=== PATIENT | female | born 1960 | race Caucasian/White ===

== ENCOUNTER → 2017-08-09 | Day surgery (SDC) | payer BC, OTHER ==
[2017-07-26 11:15] VITALS: Ht 162.6 cm; Wt 100.0 kg
[~2017-08-09] VITALS: Ht 162.6 cm; Wt 100.0 kg
[~2017-08-09] MED LIST: ACET-1256 PO; CETI10TA84 PO; CHOL1000 PO; DOCU100C31 PO; GLUCTAB7 PO; GUAI1TAB69 PO; LIDOCAINE HCL 2% 2 ML VIAL (20MG/ML) ONE; MIDAZOLAM HCL 1 MG/ML 2ML VIAL ONE; MULT-506 PO; OMEG10007 PO; ONDANSETRON INJ 2 MG/ML 2 ML VIAL ONE; OYST500T47 PO; PROPOFOL IV EMULSION 10 MG/ML 20 ML VIAL IV ONE
--- NOTE | 2017-08-09 12:10 | Endo History and Physical ---
History & Physical Date of Service: Aug 09, 2017. Chief Complaint: FAMILY HISTORY OF COLON CA IN MOTHER AND AUNT Referring Physician: DR CARNES History of Present Illness 57 yo CF who presents for colonoscopy secondary to family history of colon cancer in Mother. Past Medical History Arthritis, Gastrointestinal Disorder Past Surgical History Hx Cardiac Surgery: No Hx Internal Defibrillator: No Hx Pacemaker: No Hx Abdominal Surgery: Yes (D&C/UTERINE POLYPECTOMY) Hx of Implantable Prosthesis: No Hx Post-Op Nausea and Vomiting: No Hx Cancer Surgery: No Hx Thoracic Surgery: No Hx Orthopedic: Yes (LEFT FANG) Hx Urinary Tract Surgery: No Family History Colon CA Social History Smoking Status: Never Smoker Hx Substance Use: No Hx Alcohol Use: No Allergies Coded Allergies: Prochlorperazine (Verified Allergy, Severe, RESTLESS LEGS AND ARMS , ) Amitriptyline (Unverified Allergy, Unknown, per PCP records , 08/09/17) Shrimp (Verified Allergy, Unknown, VOMITING, 08/09/17) Fungi (Verified Adverse Reaction, Unknown, MILDEW--SINUS ISSUES, 08/09/17) Sulfa Antibiotics (Verified Adverse Reaction, Unknown, "SULFA DRUGS": DIZZINESS, 08/09/17) Current Medications Reported Home Medications Medications Dose Route/Sig Max Daily Dose Days Date Category Tylenol (Acetaminophen) 500 Mg Tab 2 Tab PO Q6 PRN 07/26/17 Reported Paradox-3 (Fish Oil) 1 Ea Cap 1 Cap PO BID 07/26/17 Reported Calcium (Oyster Shell) 500 Mg Tab 1 Tab PO BID 07/26/17 Reported Vitamin D3 (Cholecalciferol) 1,000 Unit Tab 1 Tab PO BID 07/26/17 Reported Mucinex Maximum Strength (Guaifenesin) 1,200 Mg Tab 1 Tab PO BID PRN 09/23/15 Reported Docusate Sodium 100 Mg Cap 1 Cap PO QAM 09/23/15 Reported Multivitamin (Multivitamins) Tab 1 Tab PO DAILY AT NOON 09/23/15 Reported Glucosamine Chondroitin (Yundfpuakxi-Tmvaywfguyi-Grd C-) 1 Tab Tab 1 Tab PO TID 09/23/15 Reported Zyrtec (Cetirizine HCl) 10 Mg Tab 10 Mg PO HS 01/24/11 Reported Vital Signs Weight (Kilograms): 100 Height (Feet): 5 Height (Inches): 4 Date Time Temp Pulse Resp B/P (MAP) Pulse Ox O2 Delivery O2 Flow Rate FiO2 08/09/17 10:47 36.8 73 20 122/79 (93) 98 Room Air Physical Exam General Appearance: WD/WN, no apparent distress Respiratory/Chest: Auscultation: breath sounds normal Cardiovascular: Heart Auscultation: RRR Abdomen: Bowel Sounds: normal Inspection & Palpation: soft, non-distended, no tenderness, guarding & rebound Assessment and Plan Assessment: 57 yo CF who presents for colonoscopy secondary to family history of colon cancer in Mother. Plan: Proceed with colonoscopy.
--- NOTE | 2017-08-09 12:36 | Discharge Instructions ---
Endoscopy Patient Instructions Date / Procedure(s) Performed Aug 09, 2017. Colonoscopy Allergy Information Coded Allergies: Prochlorperazine (Verified Allergy, Severe, RESTLESS LEGS AND ARMS , ) Amitriptyline (Unverified Allergy, Unknown, per PCP records , 08/09/17) Shrimp (Verified Allergy, Unknown, VOMITING, 08/09/17) Fungi (Verified Adverse Reaction, Unknown, MILDEW--SINUS ISSUES, 08/09/17) Sulfa Antibiotics (Verified Adverse Reaction, Unknown, "SULFA DRUGS": DIZZINESS, 08/09/17) Discharge Date / Findings Aug 09, 2017. Internal hemorrhoids Medication Instructions OK to resume all medications today as prescribed Reported Home Medications Medications Dose Route/Sig Max Daily Dose Days Date Category Tylenol (Acetaminophen) 500 Mg Tab 2 Tab PO Q6 PRN 07/26/17 Reported B[place]wick-3 (Fish Oil) 1 Ea Cap 1 Cap PO BID 07/26/17 Reported Calcium (Oyster Shell) 500 Mg Tab 1 Tab PO BID 07/26/17 Reported Vitamin D3 (Cholecalciferol) 1,000 Unit Tab 1 Tab PO BID 07/26/17 Reported Mucinex Maximum Strength (Guaifenesin) 1,200 Mg Tab 1 Tab PO BID PRN 09/23/15 Reported Docusate Sodium 100 Mg Cap 1 Cap PO QAM 09/23/15 Reported Multivitamin (Multivitamins) Tab 1 Tab PO DAILY AT NOON 09/23/15 Reported Glucosamine Chondroitin (Bjkkpnqjrvt-Qvoovskrkhd-Mwg C-) 1 Tab Tab 1 Tab PO TID 09/23/15 Reported Zyrtec (Cetirizine HCl) 10 Mg Tab 10 Mg PO HS 01/24/11 Reported Provider Instructions Activity Restrictions - No exercising or heavy lifting for 24 hours. - Do not drink alcohol the day of the procedure. - Do not drive a car or operate machinery until the day after the procedure. - Do not make any important decisions or sign important papers in 24 hours after the procedure. Following Day: - Return to full activity which may include returning to work/school. Diet Start your diet with liquids and light foods (jello, soup, juice, toast). Then eat your usual diet if not nauseated. Treatment For Common After Affects For mild abdominal pain, bloating, or excessive gas: - Rest - Eat lightly - Lie on right side Follow-Up Information Follow-up with DR CARNES as scheduled Anesthesia Information What You Should Know You have had a procedure that required some medicine to reduce anxiety and discomfort. This treatment is called moderate sedation. After receiving the treatment, you may be sleepy, but you will be able to breathe on your own. The effects of the treatment may last for several hours. Follow these instructions along with Activity/Diet recommendations noted above: * Do NOT do anything where dizziness or clumsiness would be dangerous. * Rest quietly at home today, then you can be up and about tomorrow. * Have a responsible person stay with you the rest of today. * You may have had an I.V. today. If so, you may take the dressing off later today. Recommendations Call your doctor if: * Trouble breathing * Continuous vomiting for more than 24 hours * Temperature above 101 degrees * Severe abdominal pain or bloating * Pain not relieved by pain medicine ordered * There is increased drainage or redness from any incision * A large amount of rectal bleeding greater than 2-3 tablespoons. (If you had a polyp/s removed or have hemorrhoids, a small amount of blood - from the rectum is to be expected.) * You have any unanswered questions or concerns. IN THE EVENT OF A SERIOUS EMERGENCY, GO TO THE NEAREST EMERGENCY ROOM Your discharge instructions were prepared by provider Enzo Zelaya. Patient Instructions Signature Page Concepción Simental Patient (or Guardian) Signature/Date: I have read and understand the instructions given to me by my caregivers. Caregiver/RN/Doctor Signature/Date: The above-named patient and/or guardian has received patient instructions on this date. + Original Patient Signature Page (only) stays with chart. Please make copy for patient.
--- NOTE | 2017-08-09 12:41 | GI REPORT ---
Procedure Date: 08/09/2017 11:50 AM Procedure: Colonoscopy Indications: Family history of colon cancer in a first-degree relative Medicines: Monitored Anesthesia Care Complications: No immediate complications. Estimated Blood Loss: Estimated blood loss: none. Procedure: Pre-Anesthesia Assessment: - Prior to the procedure, a History and Physical was performed, and patient medications and allergies were reviewed. The patient's tolerance of previous anesthesia was also reviewed. The risks and benefits of the procedure and the sedation options and risks were discussed with the patient. All questions were answered, and informed consent was obtained. Prior Anticoagulants: The patient has taken no previous anticoagulant or antiplatelet agents. ASA Grade Assessment: II - A patient with mild systemic disease. After reviewing the risks and benefits, the patient was deemed in satisfactory condition to undergo the procedure. After I obtained informed consent, the scope was passed under direct vision. Throughout the procedure, the patient's blood pressure, pulse, and oxygen saturations were monitored continuously. The scope was introduced through the anus and advanced to the cecum, identified by appendiceal orifice and ileocecal valve. The colonoscopy was performed without difficulty. The patient tolerated the procedure well. The quality of the bowel preparation was good. The ileocecal valve, appendiceal orifice, and rectum were photographed. Findings: The perianal and digital rectal examinations were normal. Multiple small-mouthed diverticula were found in the sigmoid colon. Non-bleeding internal hemorrhoids were found during retroflexion. The hemorrhoids were small. Impression: - Diverticulosis in the sigmoid colon. - Non-bleeding internal hemorrhoids. - No specimens collected. Recommendation: - Resume previous diet. - Continue present medications. - Repeat colonoscopy in 5 years for surveillance. - Return to primary care physician as previously scheduled. Enzo Zelaya DO 08/09/2017 12:41:05 PM This report has been signed electronically. Note Initiated On: 08/09/2017 11:50 AM I attest to the content of the Intraoperative Record and orders documented therein, exceptions below
[2017-08-09 13:07] VITALS: BP 123/70; PULSE 65; O2SAT 100
--- NOTE | 2017-08-09 13:12 | Anesthesiology Progress Note ---
Anesthesia Post Op Note Date & Time Aug 09, 2017 at 13:12 Vital Signs Pain Intensity: 0 Vital Signs Past 12 Hours Date Time Temp Pulse Resp B/P (MAP) Pulse Ox O2 Delivery O2 Flow Rate FiO2 08/09/17 10:47 36.8 73 20 122/79 (93) 98 Room Air Notes Mental Status: alert / awake / arousable, participated in evaluation Pt Amnestic to Procedure: Yes Nausea / Vomiting: adequately controlled Pain: adequately controlled Airway Patency, RR, SpO2: stable & adequate BP & HR: stable & adequate Hydration State: stable & adequate Anesthetic Complications: no major complications apparent
== END | disposition home or self-care (01) ==
LOC: C.GI 10:07
PROVIDERS: ATTEND Internal Medicine
DX: Z12.11 Encounter for screening for malignant neoplasm of colon (principal); Z80.0 Family history of malignant neoplasm of digestive organs; K57.30 Diverticulosis of large intestine without perforation or abscess without bleeding; K64.8 Other hemorrhoids; M19.90 Unspecified osteoarthritis, unspecified site; Z96.642 Presence of left artificial hip joint

== ENCOUNTER → 2017-09-02 | Outpatient (CLI) | payer OTHER ==
[~2017-09-02] MED LIST changes: -LIDOCAINE HCL 2% 2 ML VIAL (20MG/ML) ONE; -MIDAZOLAM HCL 1 MG/ML 2ML VIAL ONE; -ONDANSETRON INJ 2 MG/ML 2 ML VIAL ONE; -PROPOFOL IV EMULSION 10 MG/ML 20 ML VIAL IV ONE
[2017-09-02 09:41] LABS: ALBUMIN 3.6 gm/dl (3.4-5.0); ALT/SGPT 29 U/L (12-78); BLOOD UREA NITROGEN 17 mg/dl (7-18); CALCIUM 9.2 mg/dl (8.5-10.1); CARBON DIOXIDE 30 mmol/L (21-32); CHOLESTEROL 258 mg/dl (0-200); CREATININE 0.67 mg/dl (0.60-1.20); GLUCOSE 87 mg/dl (70-99); POTASSIUM 3.8 mmol/L (3.5-5.1); SODIUM 139 mmol/L (136-145)
[2017-09-02 09:52] LABS: ALKALINE PHOSPHATASE 51 U/L (45-117); AST/SGOT 16 U/L (15-37); LDL CHOLESTEROL CALCULATED 139 mg/dl; TOTAL PROTEIN 7.5 gm/dl (6.4-8.2)
== END | disposition home or self-care (01) ==
LOC: C.LAB1850 08:15
PROVIDERS: ATTEND Internal Medicine
DX: E78.5 Hyperlipidemia, unspecified (principal); Z13.1 Encounter for screening for diabetes mellitus; R53.83 Other fatigue

== ENCOUNTER 2023-09-09 10:34 | Observation (INO) ==
[2023-09-09] MEDS: ONDANSETRON INJ 2 MG/ML 2 ML VIAL IV STA (11:01)
--- NOTE | 2023-09-09 11:20 | Emergency Department Note ---
Impression & Plan Biliary colic ADMIT ED Provider Note HPI: History obtained from patient The patient is a 63-year-old female who presents the emergency department with chief complaint of abdominal pain with nausea. Patient states she was just discharged from the hospital yesterday. Patient states that she was diagnosed with cholelithiasis, she was in the process of trying to schedule an outpatient elective cholecystectomy. Patient states that she developed pain on the right side of her abdomen extending across the upper portion of her abdomen last evening into today and therefore came back to the emergency department to be assessed. On my assessment here in the ED the patient is complaining of nausea but otherwise appears to be in no acute distress. Per chart review, MR DORA noted cholelithiasis with stones in the gallbladder neck without acute obstruction or acute cholecystitis while the patient was inpatient. ROS: - Per HPI Differential Diagnosis: Acute cholecystitis, biliary colic, choledocholithiasis, acute gastritis, acute pancreatitis, amongst other potential pathologies. *Outpatient medications and allergy history reviewed. PE: General: Alert HEENT: Normocephalic, trachea midline Eyes: Extraocular eye movement is intact, no scleral erythema Pulmonary: Clear to auscultation bilaterally, no wheezing Cardio: Regular rate and rhythm GI: Abdomen is soft to palpation, there is moderate tenderness to the right side of the abdomen with palpation without guarding or rigidity : No suprapubic tenderness MSK: No evidence of trauma or malformation of the extremities, no edema Skin: No evidence of rash Neuro: Alert, no focal deficits Psychiatric: Cooperative Medical Decision Making: IV was established and lab work obtained. Lab work shows no leukocytosis, hemoglobin is normal, platelet count is normal, CMP does not show any transaminitis, bilirubin is normal. I discussed the patient's presentation with the on-call midlevel provider for the general surgery service, Edith Algeria PA-C, and the patient was evaluated here in the emergency department. Patient was then taken to the operating room by general surgery for further management. Patient was transferred to the general surgery service in stable condition. Consultants/Discussions held with other healthcare providers: -Edith Alegria PA-C, General Surgery / Dr. Barrios General Surgery Disposition discussion held by myself with: -Patient Diagnosis: 1. Abdominal pain, acute 2. History of cholelithiasis 3. Nausea, acute Disposition: Admission to general surgery Francis Mcclain DO Emergency Medicine Past Med/Surg History Medical History Pneumonia Viral hepatitis, type A (01/29/11) Malaria Cough Stye Cellulitis Morbid obesity with BMI of 40.0-44.9, adult History of hepatitis A in 2010--no issues now Osteoarthritis Chronic back pain Rectal bleeding History of anal fissures Diverticular disease PVCs (premature ventricular contractions) follows with PCP Cardiac murmur mild; follows with PCP Allergic rhinitis Obstructive sleep apnea of adult no device Scoliosis Surgical History History of tooth extraction History of wisdom tooth extraction Status post left hip replacement H/O colonoscopy S/P dilatation and curettage Family History Mother Liver cancer Colorectal cancer Aunt Colorectal cancer Grandmother (Paternal) Pancreatic cancer Uncle Allergic rhinitis Uncle Dementia Other No family history of adverse response to anesthesia Denies family history of Ovarian cancer Prostate cancer Myocardial infarction Breast cancer Social History Smoking Status: Never smoker Second Hand Exposure: No; Do You Dip or Chew Tobacco: No; Hx Alcohol Use: No Hx Substance Use: No Preferred Language: Iranian Communication Ability: Effective Press Helper Required: No Beliefs That Will Affect Care: None marital status: Single Current Living Situation: Alone current occupational status: employed current occupation: [employer] for [employer] Feels Safe at Home: Yes Childhood Exposure to Second-Hand Smoke: Yes Dental Care, Regularly: No Physical Activity Frequency: Does not Exercise Seatbelt Use: always Sunscreen Use: Yes Assistive Devices: Cane Allergies Allergies Allergy/AdvReac Type Severity Reaction Status Date / Time house dust mite Allergy Intermediate Sneezing Verified 09/07/23 19:02 mold Allergy Intermediate Sneezing Verified 09/07/23 19:02 prochlorperazine AdvReac Intermediate RESTLESS Verified 08/07/23 14:51 LEGS AND ARMS shrimp AdvReac Intermediate VOMITING Verified 08/07/23 14:51 amitriptyline AdvReac Mild groggy Verified 08/07/23 14:51 Sulfa (Sulfonamide AdvReac Mild "SULFA Verified 08/07/23 14:51 Antibiotics) DRUGS": DIZZINESS Home Meds Home Medications Medication Instructions Recorded Confirmed calcium carbonate 500 mg calcium 500 mg PO BIDM 09/11/19 09/09/23 (1,250 mg) tablet cetirizine 10 mg tablet 10 mg PO HS 09/11/19 09/09/23 glucosamine sulfate-chondroitin 1 cap PO TID 09/11/19 09/09/23 sulfate A 500 mg-250 mg capsule multivitamin 1 tab PO QDL 09/11/19 09/09/23 elderberry fruit [Elderberry] 50 mg PO QPM 12/19/20 09/09/23 guaifenesin 600 mg tablet, 1,200 mg PO BID 12/28/21 09/09/23 extended release 12 hr (Mucinex) acetaminophen 500 mg tablet 500 mg PO ONCE PRN Pain 07/22/23 09/09/23 (Tylenol Extra Strength) omega-3 fatty acids 1,000 mg PO BID 07/22/23 09/09/23 Previous Rx's Medication Instructions Recorded montelukast 10 mg tablet 10 mg PO QPM #90 tabs 03/18/23 meloxicam 7.5 mg tablet 15 mg (2 x 7.5 mg) PO DAILY PRN 08/07/23 joint pain #60 tabs Results & Data (ED) Vital Signs Vital Signs - 24 hr 09/09/23 10:48 09/09/23 13:04 Temperature 36.2 C L 37.2 C Temperature Source Temporal Artery Scan Oral Pulse Rate 76 Pulse Rate [Right Finger] 84 Pulse Rhythm [Right Finger] Regular Pulse Strength [Right Finger] Normal Respiratory Rate 20 20 Respiratory Effort / Characteristics Non-Labored Non-Labored Spontaneous Respiratory Depth Normal Normal Respiratory Pattern Regular Blood Pressure 189/101 H Blood Pressure [Right Arm] 184/94 H Blood Pressure Mean 130 Blood Pressure Mean [Right Arm] 124 Blood Pressure Position [Right Arm] Semi-fowlers Pulse Oximetry 96 99 Oxygen Delivery Method Room Air Room Air Sepsis Recent Fever Within 48 Hours No Sepsis New/Unexplained Change in Mental Status N/A Sepsis Action Taken by Nursing No Action Required Laboratory Data 09/09/23 11:00 09/09/23 11:00 Lab Results 09/09/23 09/09/23 Range/Units 11:00 12:40 WBC 6.40 (4.8-10.8) K/ul RBC 4.61 (4.20-5.40) M/uL Hgb 13.3 (12.0-16.0) g/dl Hct 41.0 (37.0-47.0) % MCV 88.9 (80.0-100.0) fL MCH 28.9 (25.0-34.0) pg MCHC 32.4 (32.0-36.0) g/dL RDW Std Deviation 43.5 (36.4-46.3) fL RDW Coeff of Tucker 13.3 (11.5-14.5) % Plt Count 294 (130-400) K/uL MPV 10.1 (9.4-12.4) fL Immature Gran % (Auto) 0.2 % Neut % (Auto) 76.1 % Lymph % (Auto) 16.3 % Walsh % (Auto) 6.3 % Eos % (Auto) 0.6 % Baso % (Auto) 0.5 % Neut # (Auto) 4.88 (1.40-6.50) K/uL Lymph # (Auto) 1.04 L (1.20-3.40) K/uL Walsh # (Auto) 0.40 (0.11-0.59) K/uL Eos # (Auto) 0.04 (0.00-0.50) K/uL Baso # (Auto) 0.03 (0.00-0.20) K/uL Immature Gran # (Auto) 0.01 (0.01-0.20) K/uL Sodium 138 (136-145) mmol/L Potassium 3.9 (3.5-5.1) mmol/L Chloride 102 (98-107) mmol/L Carbon Dioxide 28 (21-32) mmol/L Anion Gap 8 (3-11) BUN 11 (6-23) mg/dl Creatinine 0.69 (0.6-1.2) mg/dl Est Cr Clr Drug Dosing 103.5 ml/min Est GFR ( Amer) 106.6 ml/min Est GFR (Non-Af Amer) 92.0 ml/min BUN/Creatinine Ratio 15.9 (10-20) Glucose 117 H (70-99(Fasting)) mg/dl Calcium 9.3 (8.6-10.3) mg/dl Total Bilirubin 0.5 (0.2-1.0) mg/dl AST 22 (13-39) U/L ALT 28 (7-52) U/L Alkaline Phosphatase 53 (34-104) U/L Total Protein 7.4 (6.0-8.3) gm/dl Albumin 4.5 (3.4-5.0) gm/dl Globulin 2.9 (2.5-4.0) gm/dl Albumin/Globulin Ratio 1.6 (0.9-2) Lipase 31 (11-82) U/L Urine Color Yellow Urine Appearance Clear (Clear) Urine pH 6.5 (4.5-7.5) Ur Specific Crystal 1.018 (1.000-1.030) Urine Protein Negative (Negative) Urine Glucose (UA) Negative (Negative) Urine Ketones 1+ H (Negative) Urine Blood Negative (Negative) Urine Nitrite Negative (Negative) Urine Bilirubin Negative (Negative) Urine Urobilinogen Negative (Negative) Ur Leukocyte Esterase Negative (Negative) Administered Medications Lactated Ringer's (Lr) 1,000 mls @ 15 mls/hr IV .Q24H CAMILA Stop: 10/09/23 13:14 Last Infusion: 09/09/23 13:30 Dose: Infused Documented By: Admin: 09/09/23 13:13 Dose: 15 mls/hr Documented By: JAG Discontinued Medications Cefazolin Sodium (Ancef 2000mg) 2,000 mg in 15 mls @ 3.75 mls/min IV PREOP ONE; Protocol Stop: 09/09/23 12:55 Last Admin: 09/09/23 13:34 Dose: 3.75 mls/min Documented By: ANNA MARIE Cefazolin Sodium (Ancef 1000mg) 1,000 mg in 7.5 mls @ 2.5 mls/min IV ONCE ONE Stop: 09/09/23 13:59 Last Admin: 09/09/23 13:34 Dose: 2.5 mls/min Documented By: ANNA MARIE Ondansetron HCl (Ondansetron Inj 2 Mg/Ml 2 Ml Vial) 4 mg IV NOW STA Stop: 09/09/23 10:54 Last Admin: 09/09/23 11:01 Dose: 4 mg Documented By: HUGO Discharge Plan Visit Data Chief Complaint: Abdominal Pain Stated Complaint: GALLBLADDER CAUSING PAIN AND NAUSEA ED Provider: Francis Mcclain Discharge Problem: Biliary colic
[2023-09-09 11:29] LABS: Basophils # (auto) 0.03 K/uL (0.00-0.20); Basophils % (auto) 0.5 %; Eosinophils # (auto) 0.04 K/uL (0.00-0.50); Eosinophils % (auto) 0.6 %; Hemoglobin 13.3 g/dl (12.0-16.0); Immature Granulocytes # (auto) 0.01 K/uL (0.01-0.20); Immature Granulocytes % (auto) 0.2 %; Lymphocytes # (auto) 1.04 K/uL (1.20-3.40); Lymphocytes % (auto) 16.3 %; Mean Corpuscular Hemoglobin 28.9 pg (25.0-34.0); Mean Corpuscular Hgb Conc 32.4 g/dL (32.0-36.0); Mean Corpuscular Volume 88.9 fL (80.0-100.0); Mean Platelet Volume 10.1 fL (9.4-12.4); Monocytes % (auto) 6.3 %; Neutrophils # (auto) 4.88 K/uL (1.40-6.50); Neutrophils % (auto) 76.1 %; Platelet Count 294 K/uL (130-400); RDW Coefficient of Variation 13.3 % (11.5-14.5); RDW Standard Deviation 43.5 fL (36.4-46.3); Red Blood Count 4.61 M/uL (4.20-5.40)
[2023-09-09 11:37] LABS: Albumin Globulin Ratio 1.6 (0.9-2); Albumin Level 4.5 gm/dl (3.4-5.0); BUN Creatinine Ratio 15.9 (10-20); Bilirubin,Total 0.5 mg/dl (0.2-1.0); Calcium 9.3 mg/dl (8.6-10.3); Creatinine Clr Calc Pharmacy 103.5 ml/min; Est GFR (African American) 106.6 ml/min; Globulin 2.9 gm/dl (2.5-4.0); Potassium 3.9 mmol/L (3.5-5.1); Total Protein 7.4 gm/dl (6.0-8.3)
--- NOTE | 2023-09-09 12:32 | History & Physical Report ---
Date of Service September 09, 2023 Assessment & Plan (1) Cholelithiasis: (2) Right upper quadrant abdominal pain: (3) Morbid obesity: Plan 63 year-old female just recently admitted to hospital over weekend for upper abdominal pain with nausea found to have cholelithiasis without cholecystitis on imaging. Discharged yesterday and then presented back to emergency department this morning due to persistent pain since this morning with nausea and bilious vomiting. No fever or chills. Unremarkable labs. Exam with RUQ tenderness on examination. Plan: Will plan to take patient to operating room for laparoscopic cholecystectomy today. Discussed procedure, risks, and expected recovery with patient. Informed consent obtained. Keep npo Pain management as needed Will give 2 gm ancef preop Discussed with DR. Barrios who agrees with above and will evaluate patient preoperatively. History of Present Illness Chief Complaint: abdominal pain and nausea Primary Care Provider: Madhav Khalil MD [place] is a 63 year-old female with history of hepatitis A, malaria, diverticulosis, scoliosis, allergic rhinitis, FADI who was just admitted to hospital over the weekend dur to intermittent epigastric and RUQ abdominal pain with nausea. She was just discharged yesterday from hospital as her symptoms resolved. She had ultrasound which showed cholelithiasis with large stones in neck of gallbladder, MRCP showing no cholecystitis or choledocholithiasis. Labs unremarkable for biliary obstruction. She states she started having pain last evening again after dinner which was intermittent but that pain worsened this morning and became persistent with nausea and clear to bilious vomiting. NO fever or chills. No prior history of abdominal surgeries. No history of chest pain, shortness of breath at rest, or palpitations. Allergies Allergy/AdvReac Type Severity Reaction Status Date / Time house dust mite Allergy Intermediate Sneezing Verified 09/07/23 19:02 mold Allergy Intermediate Sneezing Verified 09/07/23 19:02 prochlorperazine AdvReac Intermediate RESTLESS Verified 08/07/23 14:51 LEGS AND ARMS shrimp AdvReac Intermediate VOMITING Verified 08/07/23 14:51 amitriptyline AdvReac Mild groggy Verified 08/07/23 14:51 Sulfa (Sulfonamide AdvReac Mild "SULFA Verified 08/07/23 14:51 Antibiotics) DRUGS": DIZZINESS Home Medications Medication Instructions Recorded Confirmed Type calcium carbonate 500 mg calcium 500 mg PO BIDM 09/11/19 09/09/23 History (1,250 mg) tablet cetirizine 10 mg tablet 10 mg PO HS 09/11/19 09/09/23 History glucosamine sulfate-chondroitin 1 cap PO TID 09/11/19 09/09/23 History sulfate A 500 mg-250 mg capsule multivitamin 1 tab PO QDL 09/11/19 09/09/23 History elderberry fruit [Elderberry] 50 mg PO QPM 12/19/20 09/09/23 History guaifenesin 600 mg tablet, 1,200 mg PO BID 12/28/21 09/09/23 History extended release 12 hr (Mucinex) montelukast 10 mg tablet 10 mg PO QPM #90 tabs 03/18/23 09/09/23 Rx acetaminophen 500 mg tablet 500 mg PO ONCE PRN Pain 07/22/23 09/09/23 History (Tylenol Extra Strength) omega-3 fatty acids 1,000 mg PO BID 07/22/23 09/09/23 History meloxicam 7.5 mg tablet 15 mg (2 x 7.5 mg) PO DAILY PRN 08/07/23 09/09/23 Rx joint pain #60 tabs Past Med/Surg History Medical History Pneumonia Viral hepatitis, type A (01/29/11) Malaria Cough Stye Cellulitis Morbid obesity with BMI of 40.0-44.9, adult History of hepatitis A in 2010--no issues now Osteoarthritis Chronic back pain Rectal bleeding History of anal fissures Diverticular disease PVCs (premature ventricular contractions) follows with PCP Cardiac murmur mild; follows with PCP Allergic rhinitis Obstructive sleep apnea of adult no device Scoliosis Surgical History History of tooth extraction History of wisdom tooth extraction Status post left hip replacement H/O colonoscopy S/P dilatation and curettage Family History Mother Liver cancer Colorectal cancer Aunt Colorectal cancer Grandmother (Paternal) Pancreatic cancer Uncle Allergic rhinitis Uncle Dementia Other No family history of adverse response to anesthesia Denies family history of Ovarian cancer Prostate cancer Myocardial infarction Breast cancer Social History Smoking Status: Never smoker Second Hand Exposure: No; Do You Dip or Chew Tobacco: No; Hx Alcohol Use: No Hx Substance Use: No Preferred Language: Slovak Communication Ability: Effective Drill Operator Pneumatic Required: No Beliefs That Will Affect Care: None marital status: Single Current Living Situation: Alone current occupational status: employed current occupation: [employer] Feels Safe at Home: Yes Childhood Exposure to Second-Hand Smoke: Yes Dental Care, Regularly: No Physical Activity Frequency: Does not Exercise Seatbelt Use: always Sunscreen Use: Yes Assistive Devices: Cane Review of Systems Review of Systems: All systems reviewed & are unremarkable except as noted in HPI & below Physical Exam Constitutional: WD/WN, vitals as above + morbidly obese and cooperative; no acute distress and not ill appearing Neck: normal visual inspection and trachea midline Respiratory: normal respiratory effort, lungs clear to auscultation Cardiovascular: Rate/Rhythm: regular rate and regular rhythm Heart Sounds: normal S1 and normal S2 Gastrointestinal (Abdomen): Inspection/Auscultation: abdomen normal to inspe ction; abdomen not distended Percussion/Palpation: + abdomen tender (RUQ) and abdomen soft; no guarding, abdomen not rigid and abdomen not firm Skin: no rashes, warm and dry no jaundice Psychiatric: A+Ox3, euthymic affect Results & Data Results & Data Vital Signs (Past 12 Hours) Vital Signs Temp Pulse Resp BP Pulse Ox O2 Del Method 09/09/23 10:48 36.2 C L 76 20 189/101 H 96 Room Air Laboratory Results 09/09/23 Range/Units 11:00 WBC 6.40 (4.8-10.8) K/ul RBC 4.61 (4.20-5.40) M/uL Hgb 13.3 (12.0-16.0) g/dl Hct 41.0 (37.0-47.0) % MCV 88.9 (80.0-100.0) fL MCH 28.9 (25.0-34.0) pg MCHC 32.4 (32.0-36.0) g/dL RDW Std Deviation 43.5 (36.4-46.3) fL RDW Coeff of Tucker 13.3 (11.5-14.5) % Plt Count 294 (130-400) K/uL MPV 10.1 (9.4-12.4) fL Immature Gran % (Auto) 0.2 % Neut % (Auto) 76.1 % Lymph % (Auto) 16.3 % [place] % (Auto) 6.3 % Eos % (Auto) 0.6 % Baso % (Auto) 0.5 % Neut # (Auto) 4.88 (1.40-6.50) K/uL Lymph # (Auto) 1.04 L (1.20-3.40) K/uL [place] # (Auto) 0.40 (0.11-0.59) K/uL Eos # (Auto) 0.04 (0.00-0.50) K/uL Baso # (Auto) 0.03 (0.00-0.20) K/uL Immature Gran # (Auto) 0.01 (0.01-0.20) K/uL Sodium 138 (136-145) mmol/L Potassium 3.9 (3.5-5.1) mmol/L Chloride 102 (98-107) mmol/L Carbon Dioxide 28 (21-32) mmol/L Anion Gap 8 (3-11) BUN 11 (6-23) mg/dl Creatinine 0.69 (0.6-1.2) mg/dl Est Cr Clr Drug Dosing 103.5 ml/min Est GFR ( Amer) 106.6 ml/min Est GFR (Non-Af Amer) 92.0 ml/min BUN/Creatinine Ratio 15.9 (10-20) Glucose 117 H (70-99(Fasting)) mg/dl Calcium 9.3 (8.6-10.3) mg/dl Total Bilirubin 0.5 (0.2-1.0) mg/dl AST 22 (13-39) U/L ALT 28 (7-52) U/L Alkaline Phosphatase 53 (34-104) U/L Total Protein 7.4 (6.0-8.3) gm/dl Albumin 4.5 (3.4-5.0) gm/dl Globulin 2.9 (2.5-4.0) gm/dl Albumin/Globulin Ratio 1.6 (0.9-2) Lipase 31 (11-82) U/L Diagnostic Findings ABDOMINAL ULTRASOUND, RIGHT UPPER QUADRANT HISTORY: Acute right upper quadrant abdominal pain upper abd pain. COMPARISON: 04/12/2016 FINDINGS: Limited exam secondary to patient body habitus. Pancreas: The pancreas is mostly obscured by bowel gas. Liver: 22 cm in length with increased echogenicity. No marginal nodularity or focal mass identified. Gallbladder: Stone filled gallbladder. The wall measures upper limits of normal at 3 mm. No pericholecystic fluid identified. Patient reports right upper quadrant abdominal tenderness, however the sonographic Klein's sign was negative. CBD: 0.9 mm. Equivocal choledocholithiasis with small dependent increased echogenicity within the common bile duct on image 33. Right kidney: No hydronephrosis. IMPRESSION: 1. Limited exam secondary to patient body habitus. 2. Cholelithiasis with mild nonspecific gallbladder wall thickening. No pericholecystic fluid was identified and the sonographic Klein sign was reported as negative. Findings are equivocal for acute cholecystitis. Correlation could be made with hepatobiliary scan. 3. Mild common bile duct dilation with possible choledocholithiasis. Correlate with serum bilirubin. 4. Hepatic steatosis. MR MRCP HISTORY: 63 years-old Female Mild CBD dilation w/ possible choledocholithiasis acute upper abdominal pain COMPARISON: Ultrasound of same day TECHNIQUE: MRCP without IV contrast FINDINGS: Hepatomegaly with hepatic steatosis. No acute lower thoracic abnormality. No hydronephrosis, lymphadenopathy or bowel obstruction. Distended gallbladder with numerous large stones noted within the gallbladder neck. No definite gallbladder wall thickening or pericholecystic fluid identified. Common bile duct is upper limits of normal at 7 mm. No choledocholithiasis. No pancreatic ductal dilation. There are a few tiny T2 hyperintense foci within the pancreas measuring up to 4 mm suggestive of probable sidebranch IPMN's. IMPRESSION: 1. Distended gallbladder with cholelithiasis redemonstrated. 2. The common bile duct measures within the upper limits of normal. No ch oledocholithiasis is identified. Code Status & VTE Plan VTE Prophylaxis Plan VTE Prophylaxis will be ordered: Yes Supervising Physician Co-Signing Physician Notes I have seen and examined the patient directly and have reviewed the note. I agree with the assessment and plan. In brief, she has recurrent severe symptomatic cholelithiasis bordering on acute cholecystitis. Abdomen is soft but tender to palpation in the right upper quadrant. Previous ultrasound showed borderline acute cholecystitis. Labs are normal today. I discussed with her the risk benefits of laparoscopic cholecystectomy. She is agreeable to proceed and signed consent. We will take her to the operating room at the earliest convenience.
[2023-09-09] MEDS ORDERED: HYDROmorphone INJ 1 MG/ML SYRINGE IV PRN (13:00)
[2023-09-09] MEDS ORDERED: fentaNYL citrate PF 100 MCG/2 ML VIAL IV PRN (13:00)
[2023-09-09] MEDS ORDERED: ePHEDrine sulfate 50 MG/ML AMP IV PRN (13:00)
[2023-09-09] MEDS ORDERED: ATROPINE SULFATE 0.1 MG/ML 10ML SYR IV PRN (13:00)
[2023-09-09 13:01] LABS: Appearance Urine Clear (Clear); Bilirubin Urine Negative (Negative); Blood Urine Negative (Negative); Color Urine Yellow; Glucose Urine UA Negative (Negative); Ketones Urine 1+ (Negative); Leukocyte Esterase Urine Negative (Negative); Nitrite Urine Negative (Negative); Protein Urine Negative (Negative); Specific Gravity Urine 1.018 (1.000-1.030); Urobilinogen Urine Negative (Negative); pH Urine 6.5 (4.5-7.5)
[2023-09-09] MEDS ORDERED: LIDOCAINE 2% 2 ML VIAL/AMP(20MG/ML) INFIL ONE (13:02)
[2023-09-09] MEDS ORDERED: MIDAZOLAM HCL 1 MG/ML 2ML VIAL ONE (13:02)
[2023-09-09] MEDS ORDERED: fentaNYL citrate PF 100 MCG/2 ML VIAL ONE ×2 (13:02→13:59)
[2023-09-09] MEDS ORDERED: DEXAMETHASONE SOD INJ 4 MG/ML VIAL ONE (13:02)
[2023-09-09] MEDS ORDERED: ONDANSETRON INJ 2 MG/ML 2 ML VIAL ONE (13:02)
[2023-09-09] MEDS ORDERED: PROPOFOL IV EMULSION 10 MG/ML 20 ML VIAL IV ONE (13:02)
[2023-09-09] MEDS ORDERED: ROCURONIUM BROMIDE 10 MG/ML 5 ML VIAL IV ONE (13:02)
--- NOTE | 2023-09-09 13:06 | Anesthesiology Consultation ---
Date of Service September 09, 2023 Assessment & Plan (1) Encounter for pre-operative examination: Chart Review Chart Review: Acceptable Risk for Surgery and Patient NOT seen in Pre Admission Testing Consults Requested none History Surgery Operation Date: 09/09/23 08:20 Proposed Procedures p Laparoscopic Cholecystectomy - Nathan Barrios MD Height/Weight Height: 5 ft 3 in Weight: 120.4 kg Allergies Allergy/AdvReac Type Severity Reaction Status Date / Time house dust mite Allergy Intermediate Sneezing Verified 09/07/23 19:02 mold Allergy Intermediate Sneezing Verified 09/07/23 19:02 prochlorperazine AdvReac Intermediate RESTLESS Verified 08/07/23 14:51 LEGS AND ARMS shrimp AdvReac Intermediate VOMITING Verified 08/07/23 14:51 amitriptyline AdvReac Mild groggy Verified 08/07/23 14:51 Sulfa (Sulfonamide AdvReac Mild "SULFA Verified 08/07/23 14:51 Antibiotics) DRUGS": DIZZINESS Medications Home Medications Medication Instructions Recorded Confirmed Last Taken calcium carbonate 500 mg calcium 500 mg PO BIDM 09/11/19 09/09/23 07/24/21 (1,250 mg) tablet cetirizine 10 mg tablet 10 mg PO HS 09/11/19 09/09/23 07/24/21 glucosamine sulfate-chondroitin 1 cap PO TID 09/11/19 09/09/23 07/24/21 sulfate A 500 mg-250 mg capsule multivitamin 1 tab PO QDL 09/11/19 09/09/23 07/24/21 elderberry fruit [Elderberry] 50 mg PO QPM 12/19/20 09/09/23 07/23/21 guaifenesin 600 mg tablet, 1,200 mg PO BID 12/28/21 09/09/23 Unknown extended release 12 hr (Mucinex) montelukast 10 mg tablet 10 mg PO QPM #90 tabs 03/18/23 09/09/23 Unknown acetaminophen 500 mg tablet 500 mg PO ONCE PRN Pain 07/22/23 09/09/23 Unknown (Tylenol Extra Strength) omega-3 fatty acids 1,000 mg PO BID 07/22/23 09/09/23 Unknown meloxicam 7.5 mg tablet 15 mg (2 x 7.5 mg) PO DAILY PRN 08/07/23 09/09/23 Unknown joint pain #60 tabs Active Medications Generic Name Dose Route Start Last Admin Trade Name Tom PRN Reason Stop Dose Admin Lactated Ringer's 1,000 mls @ 15 mls/hr 09/09/23 13:15 09/09/23 13:13 Lr IV 10/09/23 13:14 15 mls/hr .Q24H CAMILA Administration Past Medical History Medical History Pneumonia Viral hepatitis, type A (01/29/11) Malaria Cough Stye Cellulitis Morbid obesity with BMI of 40.0-44.9, adult History of hepatitis A in 2010--no issues now Osteoarthritis Chronic back pain Rectal bleeding History of anal fissures Diverticular disease PVCs (premature ventricular contractions) follows with PCP Cardiac murmur mild; follows with PCP Allergic rhinitis Obstructive sleep apnea of adult no device Scoliosis LBBB noted when patient presented to ER 09/07/23. Negative troponins. Denied chest pain. Past Family History Family History Mother Liver cancer Colorectal cancer Aunt Colorectal cancer Grandmother (Paternal) Pancreatic cancer Uncle Allergic rhinitis Uncle Dementia Other No family history of adverse response to anesthesia Denies family history of Ovarian cancer Prostate cancer Myocardial infarction Breast cancer Past Surgical History Surgical History History of tooth extraction History of wisdom tooth extraction Status post left hip replacement H/O colonoscopy S/P dilatation and curettage Social History Smoking Status: Never smoker Do You Dip or Chew Tobacco: No Hx Alcohol Use: No Hx Substance Use: No substance use type: does not use Physical Exam Vital Signs Last Vital Signs Temp 37.2 C 09/09/23 13:04 Pulse 84 09/09/23 13:04 Resp 20 09/09/23 13:04 BP 184/94 H 09/09/23 13:04 Pulse Ox 99 09/09/23 13:04 O2 Del Method Room Air 09/09/23 13:04 Testing Laboratory Results 09/09/23 11:00 09/09/23 11:00 Urine Color Yellow 09/09/23 12:40 Urine Appearance Clear (Clear) 09/09/23 12:40 Urine pH 6.5 (4.5-7.5) 09/09/23 12:40 Ur Specific [place] 1.018 (1.000-1.030) 09/09/23 12:40 Urine Protein Negative (Negative) 09/09/23 12:40 Urine Glucose (UA) Negative (Negative) 09/09/23 12:40 Urine Ketones 1+ (Negative) H 09/09/23 12:40 Urine Nitrite Negative (Negative) 09/09/23 12:40 Ur Leukocyte Esterase Negative (Negative) 09/09/23 12:40 Electrocardiogram Date: 09/07/23 DICTATED BY: Juan F Martinez MD Test Reason : Blood Pressure : / mmHG Vent. Rate : 077 BPM Atrial Rate : 077 BPM P-R Int : 152 ms QRS Dur : 138 ms QT Int : 418 ms P-R-T Axes : 002 -10 093 degrees QTc Int : 473 ms Normal sinus rhythm Left bundle branch block Abnormal ECG When compared with ECG of 24-APR-2016 13:01, Premature ventricular complexes are no longer Present Left bundle branch block is now Present Confirmed by Juan F Martinez ([id number]) on 09/08/2023 8:43:11 AM
[2023-09-09] MEDS: LACTATED RINGER'S 1,000 ML IV SCH ×2 (13:13→18:24)
[2023-09-09] MEDS: ceFAZolin 2000MG 2,000 MG/15 ML SYR IV ONE (13:34)
[2023-09-09] MEDS: ceFAZolin 1000MG 1,000 MG/7.5 ML SYR IV ONE (13:34)
[2023-09-09] MEDS ORDERED: ceFAZolin 330 MG/ML 1 GM VIAL ONE (13:56)
[2023-09-09] MEDS ORDERED: ESMOLOL HCL INJ 10 MG/ML 10ML VIAL IV ONE (14:09)
[2023-09-09] MEDS ORDERED: SUCCINYLCHOLINE 100MG/5ML SYR IV ONE (14:11)
[2023-09-09] MEDS ORDERED: LABETALOL HCL IV 5 MG/ML 20ML IV ONE ×2 (14:12→15:11)
[2023-09-09] MEDS ORDERED: SUGAMMADEX SODIUM 200 MG/2 ML VIAL IV ONE (14:23)
[2023-09-09] MEDS: SURGICEL ABSORB HEMOSTAT 2IN X 14IN TOP ONE (14:38)
[2023-09-09] MEDS: BUPIVACAINE/EPINEPHRINE 0.5% MPF 1:200,000 30 ML VIAL ONE (14:44)
--- NOTE | 2023-09-09 14:50 | Post Operative Brief Note ---
Immediate Post Op Note v1 Date of Surgery September 09, 2023 Pre & Post Diagnosis Operation Date: 09/09/23 08:20 Pre-Op Diagnosis: Cholelithiasis Post-Op Diagnosis: Acute cholecystitis I identified the patient and participated in the time-out.: Yes Procedure Operation Date: 09/09/23 08:20 Actual Procedures p Laparoscopic Cholecystectomy(Not Applicable) - Nathan Barrios MD Surgeon Nathan Barrios MD Custom Clothier LUZ MARIA Alegria assisted with tissue retraction, camera op, closure Estimated Blood Loss 5 Findings Consistent with Post-Op Diagnosis
--- NOTE | 2023-09-09 14:51 | Operative Report ---
Post Operative Report Pre & Post Diagnosis Operation Date: 09/09/23 08:20 Pre-Op Diagnosis: Cholelithiasis Post-Op Diagnosis: acute cholecystitis I identified the patient and participated in the time-out.: Yes Procedure Operation Date: 09/09/23 08:20 Actual Procedures p Laparoscopic Cholecystectomy(Not Applicable) - Nathan Barrios MD Surgeon Nathan Barrios MD Police Clerk LUZ MARIA Alegria assisted with tissue retraction, camera op, closure Estimated Blood Loss 5 Findings Consistent with Post-Op Diagnosis Specimens gallbladder Drains none Anesthesia Type General Complications no immediate complications Description of Procedure the patient was taken to the operating room, and placed supine on the operating table. A timeout was performed, perioperative antibiotics were administered, SCD boots were placed. After adequate anesthesia and analgesia was obtained, the abdomen was prepped and draped in the normal sterile fashion. Local anesthetic was injected into and around the proposed incision sites. An incision was made with a 15 blade scalpel in the supraumbilical region and carried down to the level of the fascia. The fascia was grasped with a trach hook, and a varies needle was used to enter the abdominal cavity. The abdomen was insufflated to a pressure of 15 mmHg, and a 11 mm trocar was placed in this location. A 10 mm, 30 degree laparoscope was placed into the abdominal cavity, and the abdomen was surveyed. Two 5 mm trochars were placed along the right costal margin, and one 5 mm trocar was placed in the subxiphoid region under direct visualization. The gallbladder was grasped and retracted cephalad and laterally, exposing the triangle of [place]ot. Dissection began in the triangle with a combination of blunt dissection with the [place] dissector, and judicious use of the hook cautery. The cystic duct and cystic artery were dissected free circumferentially, and a critical view of safety was obtained. The cystic duct and cystic artery were clipped and transected, and the gallbladder was removed from the gallbladder fossa with the hook cautery. The camera was switched to a 5 mm, the gallbladder was placed in an Endo Catch bag, and removed via the supraumbilical port site. The camera was switched back to the 10 mm camera, and the abdomen was surveyed again. Hemostasis was checked and attended, and was excellent. The abdomen was copiously irrigated and suctioned free. Again hemostasis was checked and was excellent. All trochars were removed under direct visualization. The abdomen was desufflated. The fascia in the 11 mm port site was closed with a 0 Vicryl suture. The skin was closed with a running 4-0 Monocryl subcuticular stitch. Dermabond was applied. The patient tolerated the procedure without complication, and was transferred in stable condition to the PACU. All instrument, needle, and sponge counts were correct at the end of the case. my respiratory care assistant was necessary throughout the procedure for tissue retraction, possible camera operation, and closure of the wounds. I understand that section 1842(b)(7)(D) of the Social Security act generally prohibits Medicare physician fee schedule payment for the services of assistants at surgery in teaching hospitals when qualified residents are available to furnish such services. I certify that the services for which payment is claimed were medically necessary and that no qualified resident was available to perform the services. I further understand that these services are subject to postpayment review by the Medicare carrier. I attest to the content of the Intraoperative Record and any orders documented therein. Any exceptions are noted below.
[2023-09-09] MEDS: ONDANSETRON INJ 2 MG/ML 2 ML VIAL IV PRN ×2 (15:09→19:10)
[2023-09-09] MEDS: DROPERIDOL 5 MG/2 ML VIAL IV STA (15:29)
[2023-09-09] MEDS: DROPERIDOL 5 MG/2 ML VIAL ONE (15:29)
[2023-09-09] MEDS: PROMETHAZINE HCL 6.25 MG in SODIUM CHLORIDE 0.9% 50 ML IV PRN (15:48)
[2023-09-09] MEDS: PROMETHAZINE HCL INJ 25 MG/ML 1 ML VIAL ONE (15:49)
--- NOTE | 2023-09-09 16:18 | Anesthesiology Progress Note ---
Date of Service September 09, 2023 Anesthesia Post Procedure Vital Signs Vital Signs: Temp Pulse Pulse Pulse Resp BP BP 09/09/23 16:10 73 20 166/64 H 09/09/23 16:00 72 19 162/76 H 09/09/23 15:50 76 17 162/82 H 09/09/23 15:40 76 20 156/94 H 09/09/23 15:30 76 15 170/86 H 09/09/23 15:20 75 20 156/83 H 09/09/23 15:10 71 20 149/85 H 09/09/23 15:01 98.1 F 70 18 143/80 H 09/09/23 13:04 99.0 F 84 20 09/09/23 10:48 97.2 F L 76 20 189/101 H BP Pulse Ox O2 Del Method O2 Flow Rate 09/09/23 16:10 98 Nasal Cannula 2 09/09/23 16:00 93 Room Air 09/09/23 15:50 93 Room Air 09/09/23 15:40 94 Room Air 09/09/23 15:30 94 Room Air 09/09/23 15:20 96 Room Air 09/09/23 15:10 100 Oxymask 7 09/09/23 15:01 100 Oxymask 7 09/09/23 13:04 184/94 H 99 Room Air 09/09/23 10:48 96 Room Air Pain Intensity Bilateral Upper Abdomen: Pain Intensity: 2 Transfer of Care Handoff Completed per policy Notes Mental Status: alert / awake / arousable and participated in evaluation Patient Amnestic to Procedure: Yes Nausea / Vomiting: see Notes below Pain: adequately controlled Airway Patency, RR, SpO2: stable & adequate BP & HR: stable & adequate Hydration State: stable & adequate Anesthetic Complications: no major complications apparent and Pt Satisfied with anesthetic care Notes: patient remains nauseaous similar to pre-op nausea, patient given multiple anti- nausea medications with minimal effect. Discussed with patient about expectations and that repeating doses of nausea medications could lead to side effects, patient understanding and agreeing to forego repeat doses. Agrees with plan to transition back to room to rest.
[2023-09-09] MEDS ORDERED: diphenhydrAMINE Capsule 25 MG CAP PO PRN (16:49)
[2023-09-09] MEDS ORDERED: MoRPHine SULFATE 2 MG/ML CARP IV PRN (16:49)
[2023-09-09] MEDS ORDERED: oxyCODONE/ACETAMINOPHEN 5mg/325mg TAB PO PRN (16:49)
[2023-09-09] MEDS: KETOROLAC 30 MG/ML VIAL IV PRN (18:20)
[2023-09-10] MEDS: ENOXAPARIN INJ 40 MG/0.4 ML SYR SQ SCH (07:33)
[2023-09-10] MEDS: PROMETHAZINE HCL 12.5 MG in SODIUM CHLORIDE 0.9% 50 ML IV PRN (09:25)
--- NOTE | 2023-09-10 10:24 | Surgery Progress Note ---
Date of Service September 10, 2023 Assessment & Plan (1) Cholelithiasis: (2) Right upper quadrant abdominal pain: (3) Morbid obesity: Plan POD # 1 s/p laparoscopic cholecystectomy afebrile hypertension postop, asymptomatic, likely due to postop nausea + nausea and vomiting minimal postop pain Plan: WIll try phenergan prn nausea instead of zofran has daily protonix continue IV fluids until taking po well IV Hydralazine prn systolic bp >160 ambulate clear liquids, advance as tolerated Discussed with Dr. Barrios who agrees with above Admission and Anticipated Discharge Date Admission Date: September 09, 2023 Subjective nauseated today, has had 4-5 episodes of clear to bilious emesis postop minimal abdominal pain, preop pain resolved no chest pain or shortness of breath passing flatus and small bowel movements urinating Zofran did not help with nausea Physical Exam Constitutional: WD/WN, vitals as above + morbidly obese and cooperative; no acute distress and not ill appearing Respiratory: normal respiratory effort; no respiratory distress Gastrointestinal (Abdomen): Inspection/Auscultation: abdomen normal to inspection and + abdominal surgical incision (clean/dry/intact, ecchymosis at umbilical incision); abdomen not distended Percussion/Palpation: + abdomen tender (at incision sites appropriate postop) and abdomen soft; no guarding, abdomen not rigid and abdomen not firm Skin: no rashes, warm and dry no jaundice Psychiatric: Orientation: alert and oriented x 3 Results & Data Vital Signs (Past 12 Hours) Vital Signs Temp Pulse Resp BP BP Pulse Ox O2 Del Method 09/10/23 09:28 158/89 H 09/10/23 07:32 37.1 C 68 18 172/85 H 96 Room Air 09/10/23 04:00 36.6 C 68 14 155/84 H 95 Room Air 09/10/23 00:20 36.8 C 70 14 163/88 H 95 Room Air Laboratory Results 09/09/23 09/09/23 Range/Units 12:40 11:00 WBC 6.40 (4.8-10.8) K/ul RBC 4.61 (4.20-5.40) M/uL Hgb 13.3 (12.0-16.0) g/dl Hct 41.0 (37.0-47.0) % MCV 88.9 (80.0-100.0) fL MCH 28.9 (25.0-34.0) pg MCHC 32.4 (32.0-36.0) g/dL RDW Std Deviation 43.5 (36.4-46.3) fL RDW Coeff of Tucker 13.3 (11.5-14.5) % Plt Count 294 (130-400) K/uL MPV 10.1 (9.4-12.4) fL Immature Gran % (Auto) 0.2 % Neut % (Auto) 76.1 % Lymph % (Auto) 16.3 % [place] % (Auto) 6.3 % Eos % (Auto) 0.6 % Baso % (Auto) 0.5 % Neut # (Auto) 4.88 (1.40-6.50) K/uL Lymph # (Auto) 1.04 L (1.20-3.40) K/uL [place] # (Auto) 0.40 (0.11-0.59) K/uL Eos # (Auto) 0.04 (0.00-0.50) K/uL Baso # (Auto) 0.03 (0.00-0.20) K/uL Immature Gran # (Auto) 0.01 (0.01-0.20) K/uL Sodium 138 (136-145) mmol/L Potassium 3.9 (3.5-5.1) mmol/L Chloride 102 (98-107) mmol/L Carbon Dioxide 28 (21-32) mmol/L Anion Gap 8 (3-11) BUN 11 (6-23) mg/dl Creatinine 0.69 (0.6-1.2) mg/dl Est Cr Clr Drug Dosing 103.5 ml/min Est GFR ( Amer) 106.6 ml/min Est GFR (Non-Af Amer) 92.0 ml/min BUN/Creatinine Ratio 15.9 (10-20) Glucose 117 H (70-99(Fasting)) mg/dl Calcium 9.3 (8.6-10.3) mg/dl Total Bilirubin 0.5 (0.2-1.0) mg/dl AST 22 (13-39) U/L ALT 28 (7-52) U/L Alkaline Phosphatase 53 (34-104) U/L Total Protein 7.4 (6.0-8.3) gm/dl Albumin 4.5 (3.4-5.0) gm/dl Globulin 2.9 (2.5-4.0) gm/dl Albumin/Globulin Ratio 1.6 (0.9-2) Lipase 31 (11-82) U/L Urine Color Yellow Urine Appearance Clear (Clear) Urine pH 6.5 (4.5-7.5) Ur Specific [place] 1.018 (1.000-1.030) Urine Protein Negative (Negative) Urine Glucose (UA) Negative (Negative) Urine Ketones 1+ H (Negative) Urine Blood Negative (Negative) Urine Nitrite Negative (Negative) Urine Bilirubin Negative (Negative) Urine Urobilinogen Negative (Negative) Ur Leukocyte Esterase Negative (Negative)
[2023-09-10] MEDS: PANTOprazole 40 MG in SYRINGE 0 ML IV SCH (11:26)
[2023-09-11] MEDS ORDERED: ALUMINUM/MAGNESIUM SUSP 30 ML UDC PO PRN (10:12)
[2023-09-11] MEDS: SCOPOLAMINE 1 MG TDSY TD ONE (12:06)
[2023-09-11] MEDS: FAMOTIDINE 20MG IV PUSH 20 MG/5 ML SYR IV SCH (12:08)
--- NOTE | 2023-09-11 13:18 | Surgery Progress Note ---
Date of Service September 11, 2023 Assessment & Plan (1) Cholelithiasis: (2) Right upper quadrant abdominal pain: (3) Morbid obesity: Plan POD # 2 s/p laparoscopic cholecystectomy afebrile hypertension postop, asymptomatic, likely due to postop nausea persistent + nausea minimal postop pain Plan: Continue Phenergan and Zofran prn nausea will try scopolamine patch continue daily protonix will add pepcid will add maalox as well IV Hydralazine prn systolic bp >[address] clear liquids, advance as tolerated Discussed with Dr. Barrios who agrees with above Admission and Anticipated Discharge Date Admission Date: September 09, 2023 Subjective still having nausea, phenergan somewhat helping no having as much vomiting minimal abdominal pain tolerating some more clears but has not had solid foods has not ambulated hallway small bowel movements last night and passing gas Physical Exam Constitutional: WD/WN, vitals as above + morbidly obese, cooperative and comfortable; no acute distress and not ill appearing Respiratory: normal respiratory effort; no respiratory distress and no labored breathing Gastrointestinal (Abdomen): Inspection/Auscultation: abdomen normal to inspection and + hypoactive bowel sounds; abdomen not distended and + abnormal bowel sounds Percussion/Palpation: + abdomen tender (minimal at incision sites) and abdomen soft; no guarding, abdomen not rigid and abdomen not firm Skin: no rashes, warm and dry no jaundice Psychiatric: Orientation: alert and oriented x 3 Results & Data Vital Signs (Past 12 Hours) Vital Signs Temp Pulse Resp BP Pulse Ox O2 Del Method 09/11/23 07:30 36.5 C 72 16 167/97 H 92 Room Air
[2023-09-11] MEDS: CHECK SCOPOLAMINE PATCH PLACEMENT SCH (18:25)
[2023-09-11] MEDS: MONTELUKAST SODIUM 10 MG TABLET PO SCH (20:33)
[2023-09-11] MEDS: CETIRIZINE HCL 10 MG TABLET PO SCH (20:33)
[2023-09-11] MEDS ORDERED: FAMOTIDINE 20MG IV PUSH 20 MG/5 ML SYR IV SCH (23:00)
[2023-09-12] MEDS: hydrALAZINE HCL 20 MG/ML VIAL IV PRN (04:12)
[2023-09-12 06:51] LABS: Basophils # (auto) 0.03 K/uL (0.00-0.20); Basophils % (auto) 0.3 %; Eosinophils # (auto) 0.02 K/uL (0.00-0.50); Eosinophils % (auto) 0.2 %; Hematocrit (blood only) 36.8 % (37.0-47.0); Hemoglobin 12.6 g/dl (12.0-16.0); Lymphocytes # (auto) 1.37 K/uL (1.20-3.40); Lymphocytes % (auto) 13.3 %; Mean Corpuscular Hemoglobin 29.3 pg (25.0-34.0); Mean Corpuscular Hgb Conc 34.2 g/dL (32.0-36.0); Mean Corpuscular Volume 85.6 fL (80.0-100.0); Mean Platelet Volume 10.4 fL (9.4-12.4); Monocytes # (auto) 0.89 K/uL (0.11-0.59); Monocytes % (auto) 8.6 %; Neutrophils # (auto) 7.91 K/uL (1.40-6.50); Neutrophils % (auto) 76.6 %; Platelet Count 290 K/uL (130-400); RDW Coefficient of Variation 13.2 % (11.5-14.5); RDW Standard Deviation 40.9 fL (36.4-46.3); White Blood Count 10.32 K/ul (4.8-10.8)
[2023-09-12 07:15] LABS: Albumin Globulin Ratio 1.6 (0.9-2); Albumin Level 4.1 gm/dl (3.4-5.0); BUN Creatinine Ratio 18.5 (10-20); Bilirubin,Total 0.7 mg/dl (0.2-1.0); Calcium 8.7 mg/dl (8.6-10.3); Creatinine Clr Calc Pharmacy 132.3 ml/min; Est GFR (African American) 115.6 ml/min; Est GFR (Non-African American) 99.7 ml/min; Globulin 2.6 gm/dl (2.5-4.0); Potassium 3.3 mmol/L (3.5-5.1); Total Protein 6.7 gm/dl (6.0-8.3)
--- NOTE | 2023-09-12 11:34 | Surgery Progress Note ---
Date of Service September 12, 2023 Assessment & Plan (1) Cholelithiasis: (2) Right upper quadrant abdominal pain: (3) Morbid obesity: (4) Postoperative nausea: Plan POD # 3 s/p laparoscopic cholecystectomy afebrile hypertension postop, asymptomatic, likely postop and possibly due to IV Fluids? persistent postop + nausea minimal postop pain morning labs unremarkable Plan: Continue Phenergan and Zofran prn nausea continue scopolamine patch continue daily protonix and pepcid BID will add maalox prn as well IV Hydralazine prn systolic bp >[address] Given normal labs and benign abdominal examination feel postop bile leak less likely, postop nausea could be multifactorial from anesthesia/postop. WIll discontinue IV fluids, try diet again for lunch and see how she does. Discussed with Dr. Barrios who agrees with above Admission and Anticipated Discharge Date Admission Date: September 09, 2023 Subjective was feeling better up until this morning and breakfast had eggs and orange and had nausea and emesis not feeling nauseated now no increase in abdominal pain no fever or chills Physical Exam Constitutional: WD/WN, vitals as above + morbidly obese, cooperative and comfortable; no acute distress and not ill appearing Respiratory: normal respiratory effort; no respiratory distress, no labored breathing and no retractions Gastrointestinal (Abdomen): Inspection/Auscultation: abdomen normal to inspection and + abdominal surgical incision (clean/dry/intact with dermabond); abdomen not distended Percussion/Palpation: abdomen soft; abdomen nontender, no guarding, abdomen not rigid and abdomen not firm Skin: no rashes, warm and dry Psychiatric: A+Ox3, euthymic affect Results & Data Vital Signs (Past 12 Hours) Vital Signs Temp Pulse Resp BP Pulse Ox O2 Del Method 09/12/23 07:38 36.7 C 67 18 160/81 H 95 Room Air 09/12/23 04:32 68 146/81 H 09/12/23 04:10 62 165/89 H Laboratory Results 09/12/23 Range/Units 06:08 WBC 10.32 (4.8-10.8) K/ul RBC 4.30 (4.20-5.40) M/uL Hgb 12.6 (12.0-16.0) g/dl Hct 36.8 L (37.0-47.0) % MCV 85.6 (80.0-100.0) fL MCH 29.3 (25.0-34.0) pg MCHC 34.2 (32.0-36.0) g/dL RDW Std Deviation 40.9 (36.4-46.3) fL RDW Coeff of Tucker 13.2 (11.5-14.5) % Plt Count 290 (130-400) K/uL MPV 10.4 (9.4-12.4) fL Immature Gran % (Auto) 1.0 % Neut % (Auto) 76.6 % Lymph % (Auto) 13.3 % Luna % (Auto) 8.6 % Eos % (Auto) 0.2 % Baso % (Auto) 0.3 % Neut # (Auto) 7.91 H (1.40-6.50) K/uL Lymph # (Auto) 1.37 (1.20-3.40) K/uL Luna # (Auto) 0.89 H (0.11-0.59) K/uL Eos # (Auto) 0.02 (0.00-0.50) K/uL Baso # (Auto) 0.03 (0.00-0.20) K/uL Immature Gran # (Auto) 0.10 (0.01-0.20) K/uL Sodium 134 L (136-145) mmol/L Potassium 3.3 L (3.5-5.1) mmol/L Chloride 97 L (98-107) mmol/L Carbon Dioxide 28 (21-32) mmol/L Anion Gap 9 (3-11) BUN 10 (6-23) mg/dl Creatinine 0.54 L (0.6-1.2) mg/dl Est Cr Clr Drug Dosing 132.3 ml/min Est GFR ( Amer) 115.6 ml/min Est GFR (Non-Af Amer) 99.7 ml/min BUN/Creatinine Ratio 18.5 (10-20) Glucose 101 H (70-99(Fasting)) mg/dl Calcium 8.7 (8.6-10.3) mg/dl Total Bilirubin 0.7 (0.2-1.0) mg/dl AST 39 (13-39) U/L ALT 61 H (7-52) U/L Alkaline Phosphatase 55 (34-104) U/L Total Protein 6.7 (6.0-8.3) gm/dl Albumin 4.1 (3.4-5.0) gm/dl Globulin 2.6 (2.5-4.0) gm/dl Albumin/Globulin Ratio 1.6 (0.9-2)
[2023-09-12] MEDS: POTASSIUM CHLORIDE CRTAB 20 MEQ TABCR PO STA (14:04)
--- NOTE | 2023-09-13 09:14 | Discharge Summary ---
Date of Service September 13, 2023 Admission HPI Per Admitting Provider Concepción is a 63 year-old female with history of hepatitis A, malaria, diverticulosis, scoliosis, allergic rhinitis, FADI who was just admitted to hospital over the weekend dur to intermittent epigastric and RUQ abdominal pain with nausea. She was just discharged yesterday from hospital as her symptoms resolved. She had ultrasound which showed cholelithiasis with large stones in neck of gallbladder, MRCP showing no cholecystitis or choledocholithiasis. Labs unremarkable for biliary obstruction. She states she started having pain last evening again after dinner which was intermittent but that pain worsened this mo rning and became persistent with nausea and clear to bilious vomiting. NO fever or chills. No prior history of abdominal surgeries. No history of chest pain, shortness of breath at rest, or palpitations. Principal Diagnosis acute calculous cholecystitis Discharge Exam Constitutional WD/WN, vitals as above + obese, cooperative and comfortable; no acute distress and not ill appearing Respiratory normal respiratory effort, lungs clear to auscultation Cardiovascular RRR, no murmur, no edema Gastrointestinal (Abdomen) Inspection/Auscultation: abdomen normal to inspection, normal bowel sounds, + abdominal wall ecchymosis (at incision sites) and + abdominal surgical incision (clean/dry/intact with dermabond); abdomen not distended Percussion/Palpation: abdomen soft; abdomen nontender, no guarding and abdomen not rigid Skin no rashes, warm and dry no jaundice Psychiatric A+Ox3, euthymic affect Discharge Data Allergies Allergy/AdvReac Type Severity Reaction Status Date / Time house dust mite Allergy Intermediate Sneezing Verified 09/07/23 19:02 mold Allergy Intermediate Sneezing Verified 09/07/23 19:02 prochlorperazine AdvReac Intermediate RESTLESS Verified 08/07/23 14:51 LEGS AND ARMS shrimp AdvReac Intermediate VOMITING Verified 08/07/23 14:51 amitriptyline AdvReac Mild groggy Verified 08/07/23 14:51 Sulfa (Sulfonamide AdvReac Mild "SULFA Verified 08/07/23 14:51 Antibiotics) DRUGS": DIZZINESS Procedures Performed Operation Date: 09/09/23 08:20 Actual Procedures p Laparoscopic Cholecystectomy(Not Applicable) - Nathan Barrios MD Hospital Course (1) Cholelithiasis: (2) Right upper quadrant abdominal pain: (3) Morbid obesity: (4) Postoperative nausea: Plan Patient was admitted and underwent laparoscopic cholecystectomy. Transferred to med/surg floor postoperatively. She developed postoperative nausea with intermittent episodes of bilious vomiting. Diet was advanced slowly to regular diet by POD # 3. Labs were repeated which were unremarkable. She had minimal postoperative pain in which she did not require narcotic pain medication. Her blood pressure was slightly elevated during her hospital stay with systolic bp in 160's. SHe was asymptomatic. She was given doses of IV Hydralazine when systolic bp >160. Advised to follow-up with PCP about her blood pressure, likely transiently elevated in postop setting. Total Time Total Time Spent Total Time Spent (In Minutes): 30 minutes Discharge Plan Discharge Items Patient Disposition: Home - Self-Care Reason For Visit: GALLBLADDER CAUSING PAIN AND NAUSEA Discharge Diagnosis: acute calculous cholecystitis Activity: Per Instructions section Non-emergency contact: Primary Care Provider and Surgeon Call non-emergency contact if: you have any medication questions, your pain is worsening, your pain is concerning for you, you have a fever, your temperature is above 101, your wound has increased redness, your wound has increased drainage and your wound pain has increased Follow-up/Referrals: Nathan Barrios MD [Physician] - 09/19/23 10:00 am (Arrive by 0945. [facility]. Bring photo ID, copay, insurance card) Madhav Khalil MD [Primary Care Provider] - Diet: Regular Addtl Attending Provider Instructions: Post-Surgical ~Discharge Instructions Activity Recommendations: - lifting limitation: (20 pounds for 2-3 weeks), - exercise/sex/sports limit: (nonstrenuous for 2 weeks), - driving or machine use limit: (none for 1 week or until pain free and no longer taking narcotic pain medication), - Shower/bathe limit: (may shower , no submerging underwater for 10 days) Diet: - Resume previous diet SPECIAL CARE INSTRUCTIONS: - May shower. Let water run over area and pat dry. - Leave surgical glue on incisions. DO not pick at it. - Call the surgeon's office with any questions or concerns - - (ex. temperature higher than 101 degrees F, excessive bleeding or pain). MEDICATIONS: - Resume previous medications unless instructed otherwise by your surgeon. - May take extra strength Tylenol as needed for mild to moderate pain -650 mg every 6 hours - Can continue your Meloxicam daily to help with pain control FOLLOW UP VISIT: - If not already scheduled, please call the office to schedule a two week follow-up appointment. Office number Pending Studies at Discharge: Yes (gallbladder pathology, will be reviewed at postop visit) Stand-Alone Forms: My [facility] Medications and DC Order Prescriptions: Continued montelukast 10 mg tablet 10 mg PO QPM Qty: 90 3RF meloxicam 7.5 mg tablet 15 mg PO DAILY PRN (Reason: joint pain) Qty: 60 1RF elderberry fruit 50 mg PO QPM acetaminophen [Tylenol Extra Strength] 500 mg tablet 500 mg PO ONCE PRN (Reason: Pain) glucosamine sulf-chondroitinSA 500-250 mg capsule 1 cap PO TID calcium carbonate 500 mg calcium (1,250 mg) tablet 500 mg PO BIDM cetirizine 10 mg tablet 10 mg PO HS multivitamin Tablet 1 tab PO QDL guaifenesin [Mucinex] 600 mg tablet extended release 12hr 1,200 mg PO BID omega-3 fatty acids Capsule 1,000 mg PO BID Discharge Orders: Discharge Order (Routine); Ordered 09/13/23 Ordered By: Edith Melgar/Other Patient Handouts: After Gallbladder Surgery, Cholecystectomy Dc Admission Data Admit Date/Time: 09/09/23 14:55 Attending Provider: Nathan Barrios Admit Provider: Nathan Barrios Primary Care Provider: Madhav Khalil V. Other Interventions: Discharge Summary Assessment (RN) Last Done: 09/13/23 08:49
== END 2023-09-13 10:15 | disposition home or self-care (01) ==
LOC: ED 10:34 → OR 13:58 → 3W 14:55 → INTOOBSV 14:55 → 3W 09-10 14:04